=== PATIENT | female | born 1995 | race Hispanic/Latino ===

== ENCOUNTER 2018-03-12 12:05 | Day surgery (SDC) | payer OTHER ==
[2018-03-12 13:39] VITALS: BMI 34.5
[2018-03-12 15:14] LABS: Hemoglobin A1c 5.8 % (4.0-6.0)
[2018-03-12 15:22] LABS: Glucose Accucheck Confirmation 82 mg/dl (70-105)
--- NOTE | 2018-03-12 15:39 | ULT ---
EXAM: ULTRASOUND BIOPHYSICAL PROFILE 03/12/18 HISTORY: 22-year-old female with nonreassuring stripe in doctor's office. Single viable intrauterine fetus in cephalic presentation. Placenta is anterior. heart rate 158 bpm. LENNY 6.7 cm. movement, tone, and breathing movements were evaluated over 30 minutes. IMPRESSION: Normal biophysical profile score 8/8. POS: [facility]
== END 2018-03-12 16:40 | disposition home or self-care (01) ==
LOC: L&D/OP 12:05
PROVIDERS: ATTEND Family Medicine
DX: Z01.89 Encounter for other specified special examinations (principal); Z79.899 Other long term (current) drug therapy
CPT/HCPCS: 36415; 36416; 59025; 76819; 82947; 83036; 99282

== ENCOUNTER 2018-03-19 11:15 | Inpatient (IN) | payer MEDICAID, OTHER, SELFPAY ==
[2018-03-19] MEDS ORDERED: Butorphanol Tartrate 1 MG/ML VIAL SLOW IVP PRN (11:48)
[2018-03-19] MEDS ORDERED: Ondansetron PF 4 MG/2 ML Vial IVP PRN ×3 (11:48→17:24)
[2018-03-19] MEDS: Lactated Ringer's 1,000 ML IV SCH ×2 (12:00→14:13)
[2018-03-19] MEDS ORDERED: Bicitra 30 ML UDCUP PO SCH (12:00)
[2018-03-19] MEDS ORDERED: CEFAZOLIN/Water 2 GM/20 ML SYRINGE SLOW IVP SCH (12:00)
[2018-03-19 12:08] VITALS: BMI 34.5
[2018-03-19 12:09] LABS: Hemoglobin 11.2 g/dL (12.0-16.0); Mean Corpuscular HGB CONC 31.9 g/dL (32.0-36.0); Mean Corpuscular Hemoglobin 26.9 pg (27.0-31.0); Mean Corpuscular Volume 84.4 fL (78.0-98.0); Platelet Count 356 thou/uL (130-400); RBC Distribution Width 12.8 % (11.5-14.5); Red Blood Cell (RBC) Count 4.17 mill/uL (4.20-5.40); White Blood Cell (WBC) Count 9.7 thou/uL (4.8-10.8)
[2018-03-19] MEDS ORDERED: CEFAZOLIN 2 GM/50 ML-DEXTROSE 2 GM in Premix Bag 1 BAG IVPB SCH (12:15)
[2018-03-19 12:48] LABS: Syphilis Antibody Nonreactive (Nonreactive); Syphilis Antibody Index 0.02 S/CO (<1.00 Non-Reactive)
[2018-03-19 12:54] LABS: HBSAg Index 0.23 S/CO (0-0.99); Hep B Surf Ag Non-Reactive S/CO (NonReactive)
[2018-03-19] MEDS ORDERED: Morphine PF 1 MG/ML SYR ONE (14:28)
[2018-03-19] MEDS ORDERED: ePHEDrine/0.9% NaCl/PF SYRINGE 50 mg/10 ml ONE (14:28)
[2018-03-19] MEDS ORDERED: Oxytocin 10 UNITS/ML VIAL ONE (14:28)
[2018-03-19] MEDS ORDERED: Fentanyl 100 MCG/2 ML VIAL ONE (15:19)
[2018-03-19] MEDS ORDERED: Ketorolac Tromethamine 30 MG/ML VIAL IVP PRN (15:19)
[2018-03-19] MEDS ORDERED: Promethazine HCl 25 MG/ML VIAL IM PRN (15:19)
[2018-03-19] MEDS ORDERED: Eucerin (Mineral Oil/Petrolatum,White) 30 gm Jar TOP PRN (15:19)
[2018-03-19] MEDS ORDERED: Naloxone HCl 0.4 mg/ml Vial IV PRN (15:19)
[2018-03-19] MEDS ORDERED: Naloxone HCl 0.4 mg/ml Vial IVP PRN ×2 (15:19)
[2018-03-19] MEDS ORDERED: Promethazine HCl 25 MG SUPP PR PRN (15:19)
[2018-03-19] MEDS ORDERED: diphenhydrAMINE 50 MG/ML VIAL IVP PRN (15:19)
[2018-03-19] MEDS ORDERED: Communication Order-Pharmacy FS SCH (15:30)
[2018-03-19] MEDS ORDERED: NS / Oxytocin 40 units/1000ml 1,000 ML ONE (16:44)
[2018-03-19] MEDS ORDERED: Lanolin Ointment 7 GM TUBE TOP PRN (17:24)
[2018-03-19] MEDS ORDERED: NS / Oxytocin 40 units/1000ml 1,000 ML IV SCH (17:24)
[2018-03-19] MEDS ORDERED: Bisacodyl 10 MG SUPP PR PRN (17:24)
[2018-03-19] MEDS ORDERED: Adacel (T-DAP) 0.5 ML SYRINGE IM ONE (17:24)
[2018-03-19] MEDS ORDERED: diphenhydrAMINE 25 MG CAP PO PRN (17:24)
[2018-03-19] MEDS ORDERED: Simethicone Chewable 80 MG TAB PO PRN (17:24)
[2018-03-19] MEDS: Ketorolac Tromethamine 30 MG/ML VIAL IVP PRN (21:08)
[2018-03-19] MEDS: Ferrous Sulfate 325 MG TAB PO SCH (21:23)
[2018-03-19] MEDS: Docusate Calcium (SURFAK) 240 MG CAP PO SCH (21:23)
[2018-03-19] MEDS ORDERED: Ibuprofen 800 MG TAB PO SCH (22:00)
--- NOTE | 2018-03-20 02:30 | OP ---
DATE OF PROCEDURE: 03/19/2018 PROCEDURE NOTE RESIDENT SURGEON: Ismael Klein DO ATTENDING SURGEON: Henrique Gonzalez MD PROCEDURE PERFORMED: Repeat low-transverse section. PREOPERATIVE DIAGNOSES: 1. Term intrauterine . 2. Previous low-transverse section. 3. Gestational diabetes, diet controlled. POSTOPERATIVE DIAGNOSES: 1. Term intrauterine , delivered. 2. Repeat low-transverse section. 3. Gestational diabetes, diet controlled. ANESTHESIA: Spinal. INDICATIONS: The patient is a 22-year-old G2, P2 at 39-1/7th weeks' gestation, who presents for a repeat scheduled section. DESCRIPTION OF PROCEDURE: After the risks, benefits, and alternatives were explained to the patient, she gave informed consent. Preoperative antibiotics included 2 g of Ancef IV. The patient was taken to the operating room and spinal anesthesia was initiated. The patient was placed in the supine position with a left tilt and prepped and draped in the usual sterile fashion. Pfannenstiel incision was made with a scalpel and carried down to the level of the fascia, which was sharply nicked. Fascial cut was extended bilaterally with Girard scissors. The inferior and superior edges of the cut fascial edges were elevated with Jaswinder clamps and the underlying rectus muscles were sharply and bluntly dissected free. The recti were divided digitally and retracted manually. The peritoneum was entered bluntly and retracted manually. Bladder blade was placed. A low transverse score was made with a scalpel, and the uterus was entered in the midline with scalpel. Clear fluid was seen. The hysterotomy was extended manually. The infant was noted to be vertex and easily delivered by fundal pressure. Mouth and nares were bulb suctioned, cord clamped and cut and grossly a normal male infant was handed to the awaiting nurse. Cord blood was obtained. The placenta was manually extracted and found to be intact with 3-vessel cord and discarded. The uterus was externalized and the endometrium was curetted with dry lap. The bladder blade was replaced and the uterus was closed with a running locking 0 Vicryl suture. Following this, hemostasis was noted. The abdomen was irrigated with saline and suctioned free of clots. The uterus was internalized and the hysterotomy was again noted to be hemostatic. Prior to internalization of the uterus, Seprafilm was placed over the uterus. After internalization of the uterus, the peritoneum was closed with a running nonlocking 3-0 Vicryl suture. The fascia was then closed with a running nonlocking 0 Vicryl suture. Subcutaneous tissue was irrigated and there were no bleeders. The subcutaneous tissue was approximated with 3 simple interrupted 3-0 Vicryl sutures. Skin was approximated with jf and a pressure dressing was placed. All counts were correct. The patient tolerated the procedure well and was taken to the recovery room in stable condition. ESTIMATED BLOOD LOSS: 500 mL. COMPLICATIONS: None. SPECIMENS: Cord blood was sent to the lab for blood type. FINDINGS: 1. Grossly normal male infant with Apgars of 8 and 9. 2. Grossly normal placenta with 3-vessel cord discarded. DRAINS: Castro to gravity drained clear urine. Job ID: [id number] [facility]
[2018-03-20] MEDS ORDERED: Butorphanol Tartrate 1 MG/ML VIAL SLOW IVP PRN (03:30)
[2018-03-20] MEDS ORDERED: HYDROcodone/Acetaminophen 5/325 mg Tablet PO PRN ×2 (03:30)
[2018-03-20] MEDS ORDERED: Meperidine HCl/PF 25 MG/ML VIAL IM PRN (03:30)
[2018-03-20 06:25] LABS: Hemoglobin 9.4 g/dL (12.0-16.0); Mean Corpuscular Hemoglobin 27.8 pg (27.0-31.0); Mean Corpuscular Volume 84.4 fL (78.0-98.0); Mean Platelet Volume 7.8 fL (7.4-10.4); Platelet Count 277 thou/uL (130-400); RBC Distribution Width 12.7 % (11.5-14.5); Red Blood Cell (RBC) Count 3.38 mill/uL (4.20-5.40); White Blood Cell (WBC) Count 10.2 thou/uL (4.8-10.8)
[2018-03-20] MEDS: Ketorolac Tromethamine 30 MG/ML VIAL IVP PRN (08:06)
[2018-03-20] MEDS: Ferrous Sulfate 325 MG TAB PO SCH (08:06)
[2018-03-20] MEDS: Prenatal Vitamin 1 TAB PO SCH (08:06)
[2018-03-20] MEDS: Docusate Calcium (SURFAK) 240 MG CAP PO SCH (08:06)
[2018-03-20] MEDS: Ibuprofen 800 MG TAB PO SCH (17:30)
[2018-03-21] MEDS: Ferrous Sulfate 325 MG TAB PO SCH ×3 (00:34→22:21)
[2018-03-21] MEDS: Ibuprofen 800 MG TAB PO SCH ×4 (00:34→22:21)
[2018-03-21] MEDS: Docusate Calcium (SURFAK) 240 MG CAP PO SCH ×3 (00:35→22:21)
[2018-03-21] MEDS: Prenatal Vitamin 1 TAB PO SCH (09:37)
[2018-03-22] MEDS: Ibuprofen 800 MG TAB PO SCH ×2 (00:11→08:45)
[2018-03-22 07:25] VITALS: TEMP 98.3
[2018-03-22] MEDS: Docusate Calcium (SURFAK) 240 MG CAP PO SCH (08:45)
[2018-03-22] MEDS: Ferrous Sulfate 325 MG TAB PO SCH (08:45)
[2018-03-22] MEDS: Prenatal Vitamin 1 TAB PO SCH (08:45)
[2018-03-22 09:45] VITALS: BP 117/79
== END 2018-03-22 13:00 | disposition home or self-care (01) | DRG 788 ==
LOC: L&D-LIB 11:15 → 3SW 17:34
PROVIDERS: ADMIT Family Medicine; ATTEND Family Medicine
PROC: 10D00Z1 Extraction of Products of Conception, Low, Open Approach (ICD-10-PCS; principal; 2018-03-19)
PROC: 3E0P05Z Introduction of Adhesion Barrier into Female Reproductive, Open Approach (ICD-10-PCS; 2018-03-19)
DX: O34.211 Maternal care for low transverse scar from previous cesarean delivery (principal); O24.420 Gestational diabetes mellitus in childbirth, diet controlled; Z3A.39 39 weeks gestation of pregnancy; Z37.0 Single live birth
CPT/HCPCS: 36415; 36416; 51702; 85027; 86780; 86850; 86900; 86901; 87340; 90715; J1885; J2274; J2590; J3010

== ENCOUNTER 2023-10-10 14:03 | Outpatient (CLI) | payer OTHER | END 2023-10-10 14:04 | disposition home or self-care (01) | LOC: BICULT 14:03 | PROVIDERS: ATTEND Advanced Practice Midwife | DX: Z34.93 Encounter for supervision of normal pregnancy, unspecified, third trimester (principal); Z3A.30 30 weeks gestation of pregnancy | CPT/HCPCS: 76805 ==